=== PATIENT | female | born 1945 | race Caucasian/White ===

== ENCOUNTER → 2021-03-02 13:08 | Outpatient (CLI) | payer MEDICARE, SELFPAY ==
--- NOTE | 2021-03-02 13:18 | DI.MRI.S_ITS ---
PROCEDURE: MR LUMBAR SPINE WO CON INDICATIONS: LOW BACK PAIN TECHNIQUE: Noncontrast sagittal T1 spin echo and T2 fast echo, sagittal STIR, axial T1 and T2 fast spin echo through the lumbar spine. In cases with scoliosis, additional coronal T2 fast spin echo may be performed. COMPARISON: [facility], MR, MR LUMBAR SPINE WITHOUT CONTRAST, 06/16/2016, 16:25. [facility], MR, L-SPINE WITHOUT CONTRAST, 10/11/2010, 14:56. FINDINGS: Image quality: Excellent. Alignment and Curvature: Grade 1 retrolisthesis of L3 on L4. Grade 1 anterolisthesis of L4 on L5. Bone Marrow: No acute fracture identified. Multilevel degenerative endplate sclerosis and spurring. Diffuse facet arthropathy. Diffuse degenerative endplate changes at L3-L4 which have progressed since the prior study. Spinal Cord: Conus medullaris terminates at the L2 level. Visualized cord demonstrates normal signal and size. Paraspinous Soft Tissues: No paravertebral masses. At T11-T12: Mild canal narrowing. Mild left foraminal stenosis. Severe right foraminal stenosis with nerve root compression although in unchanged T12-L1: Normal appearance. L1-L2: No canal stenosis. Mild bilateral foraminal narrowing. No interval change. L2-L3: Mild canal narrowing. Partial effacement of both lateral recesses with bilaterally symmetric appearance. Mild right foraminal stenosis. Severe left foraminal narrowing with nerve root compression. Overall, no interval change. L3-L4: Dorsal epidural lipomatosis is present. There is moderate to severe canal stenosis. Near complete effacement of both lateral recesses with bilaterally symmetric appearance. Severe bilateral foraminal stenosis with nerve root compression, which appears slightly progressed on both sides. L4-L5: Mild dorsal epidural lipomatosis. Moderate to severe central canal narrowing. Near complete effacement of both lateral recesses with bilaterally symmetric appearance. Severe bilateral foraminal stenosis with borderline nerve root compression on both sides. L5-S1: Posterior annular fissure. Mild to moderate canal narrowing. Severe right foraminal stenosis with nerve root compression. Moderate left foraminal narrowing, unchanged. IMPRESSION: Slight interval progression L3-L4 spondylosis and bilateral severe L3-L4 foraminal stenoses since 06/16/16. Elsewhere, no interval change as detailed above by spinal level. Multilevel spondylolisthesis as above. Dictated by: Fidel Armando M.D. on 03/02/2021 at 14:08 Approved by: Fidel Armando M.D. on 03/02/2021 at 14:27
== END ==
PROVIDERS: PCP Internal Medicine; Referring Provider Orthopaedic Surgery; Visit Provider Orthopaedic Surgery
DX: M54.5 Low back pain (principal); M47.816 Spondylosis without myelopathy or radiculopathy, lumbar region; M48.061 Spinal stenosis, lumbar region without neurogenic claudication; M43.16 Spondylolisthesis, lumbar region
CPT/HCPCS: 72148

== ENCOUNTER → 2022-07-17 13:36 | Outpatient (CLI) | payer OTHER, SELFPAY ==
--- NOTE | 2022-07-17 | DI.CT.S_ITS ---
PROCEDURE: CT LUMBAR SPINE WO CON INDICATIONS: SPINAL STENOSIS OF LUMBAR REGION TECHNIQUE: Noncontrast 3 mm thick sections acquired from the T12 level to the sacrum. Sagittal and coronal reformats were constructed. For radiation dose reduction, the following was used: automated exposure control. COMPARISON: [facility], MR, MR LUMBAR SPINE WO CON, 03/02/2021, 13:28. [facility], CR, XR LUMBAR SPINE 2 OR 3 VIEWS, 03/21/2022, 14:50. FINDINGS: Image quality: This examination is limited by involuntary motion artifact. Bones: No acute vertebral body compression fractures. No suspicious lytic or blastic bony lesions. No pars defects. Mild dextroconvex scoliotic curvature is seen. Mild retrolisthesis is seen at T11-T12. Mild grade 1 anterolisthesis is seen at L4-L5, without associated pars defects. T11-T12: At least moderate loss of disc height is seen. At least moderate disc bulge is seen. There is at least moderate left-sided and moderate to severe right-sided neural foraminal narrowing. Mild to moderate central canal narrowing is seen. T12-L1: No significant abnormality is seen. L1-L2: The disc height is well preserved. Mild generalized disc bulge is seen. There is at least moderate right-sided and mild left-sided neural foraminal narrowing. Mild central canal narrowing is seen. These imaging findings are likely similar to the prior. L2-L3: At least moderate loss of disc height is seen. At least moderate disc bulge is seen. There is a central disc protrusion. There is moderate right-sided and at least moderate left-sided neural foraminal narrowing. [id number] central canal narrowing is seen. When comparison is made with the prior images, these findings are similar. L3-L4: Moderate to severe loss of disc height is seen. Endplate irregularity and sclerosis are seen. Posteriorly projected endplate osteophytes are seen. Mild facet joint hypertrophy is seen. Moderate to severe bilateral neural foraminal narrowing can be seen. At least moderate central canal narrowing is seen. When comparison is made with the prior images, these findings are similar. L4-L5: Moderate loss of disc height is seen. At least moderate disc bulge is seen. There is a superimposed central disc protrusion. Prominent facet hypertrophy is seen. Associated hypertrophy of the ligamentum flavum can be seen. Moderate to severe bilateral neural foraminal narrowing can be seen. There is severe central canal narrowing. When comparison is made with the prior images, these findings are similar. L5-S1: Moderate to severe loss of disc height is seen. Endplate irregularity and sclerosis can be seen. Vacuum disc phenomenon is seen at this level. Relatively prominent posterior projected endplate osteophytes are seen. Bony moderate to severe bilateral neural foraminal narrowing is seen. Severe central canal narrowing is seen. When comparison is made with the prior images, these findings are similar. Soft tissues: No retroperitoneal masses or hematomas. Visualized aorta is normal in caliber. Atherosclerotic calcification is noted. IMPRESSION: Multiple levels of relatively prominent lumbar spine degenerative change are seen. The degenerative changes are believed to be similar to the prior MRI. However, the degree of central canal narrowing at L5-S1 is much better seen on the current study. Dictated by: Jamal Nguyen M.D. on 07/17/2022 at 15:36 Approved by: Jamal Nguyen M.D. on 07/17/2022 at 15:51
== END ==
PROVIDERS: PCP Internal Medicine; Referring Provider Orthopaedic Surgery Orthopaedic Surgery of the Spine; Visit Provider Orthopaedic Surgery Orthopaedic Surgery of the Spine
DX: M48.061 Spinal stenosis, lumbar region without neurogenic claudication (principal); M48.07 Spinal stenosis, lumbosacral region; M47.816 Spondylosis without myelopathy or radiculopathy, lumbar region
CPT/HCPCS: 72131

== ENCOUNTER → 2022-07-21 12:22 | Outpatient (CLI) | payer OTHER, SELFPAY ==
[2022-07-21 12:57] LABS: COVID19 -Nasal RAPID Negative (Negative)
== END ==
PROVIDERS: PCP Internal Medicine; Referring Provider Orthopaedic Surgery Orthopaedic Surgery of the Spine; Visit Provider Orthopaedic Surgery Orthopaedic Surgery of the Spine
DX: Z20.822 Contact with and (suspected) exposure to COVID-19 (principal)
CPT/HCPCS: 87635; C9803

== ENCOUNTER 2022-07-24 08:40 | Inpatient (IN) | payer OTHER, SELFPAY ==
[2022-07-12 12:31] VITALS: BMI 28.3
[2022-07-24] VITALS (18 sets, daily range): BP systolic 118–154; BP diastolic 60–89; PULSE 71–100; RESP 12–21; TEMP 36.2–36.9; O2SAT 94–99; BMI 27.8
[2022-07-24] MEDS: LACTATED RINGERS 1,000 ML 84 ML IV ×3 (10:15→13:08)
--- NOTE | 2022-07-24 10:25 | PM.PREOP ---
Pre-operative Note COVID-19 COVID-19 status: Negative Result date/Date tested (Pos, Neg/Pending): 07/23/22 Criteria for continued procedure: Expected advancement of disease process, Possibility delay results in more complex future surgery or treatment, Increased loss of function, Continuing or worsening of significant or severe pain, Deterioration of the patient's condition or overall health and Delay expected to result in less-positive ultimate med/surg outcome Interval Note History & Physical reviewed/Exam performed by Physician: Yes Changes to H&P: No
[2022-07-24] MEDS: CEFAZOLIN 2 GM/100 ML PREMIX 100 ML IV ×2 (11:35→19:33)
[2022-07-24] MEDS: BUPIVACAINE 0.25% (PF) 30 ML, EPINEPHrine 0.15 MG INJ (12:11)
[2022-07-24] MEDS: BUPIVACAINE LIPOSOME 266 MG/20 ML VIAL INJ (12:12)
--- NOTE | 2022-07-24 12:15 | SUR.OPER ---
room delayed d\t concerns regarding humidity level in room. Moved forward with case when assured that boiler was working
--- NOTE | 2022-07-24 12:19 | SUR.OPER ---
Prone on spine table, head in foam head support, padded chest and pelvic supports, gel pad at knees, lower legs supported by pillows; nipples, genitalia and toes free of pressure, arms secured on foam padded arm boards at <90 degrees abduction. Tape over blanket at thigh secured to table.
--- NOTE | 2022-07-24 16:00 | DI.RAD.S_ITS ---
PROCEDURE: XR LUMBAR SPINE 2-3V INDICATIONS: Postop TECHNIQUE: 2 spot fluoroscopic intraoperative images of the lumbar spine were acquired. COMPARISON: [facility], XR LUMBAR SPINE 2 OR 3 VIEWS, 03/21/2022, 14:50. FINDINGS: Spot fluoroscopic intraoperative images demonstrate interval postsurgical changes from posterior fixation at L3 through S1. Hardware components are in expected positions. IMPRESSION: Status post lumbar spinal fixation with expected postoperative findings. Approved by: Reyes Rhodes M.D. on 07/24/2022 at 16:42
--- NOTE | 2022-07-24 16:20 | PM.OP.1 ---
Operative Date/Time/Diagnoses Date of procedure: 07/24/22 Time of procedure: 11:20 Pre-op diagnosis: 1. L3-4, L4-5, L5-S1 spinal stenosis with neurogenic claudication 2. L4-5 spondylolisthesis 3. Lumbar scoliosis Post-op diagnosis: same Procedure & Clinicians Procedure: 1. L3-4, L4-5, L5-S1 Postero-lateral and posterior interbody fusion 2. L3-4, L4-5, L5-S1 interbody cage placement. 3. L3-4, L4-5, L5-S1 decompressive laminectomy with bilateral facetecomies 4. L3-4, L4-5, L5-S1 Posterior segmental instrumentation 5. [place] of bone marrow from iliac crest 6. Utilization of microsurgical technique and operating microscope 7. Utilization of robotic assisted navigation Same procedure as scheduled: Yes Indications: Patient has been having chronic back pain and worsening lumbar radiculopathy and symptoms of neurogenic claudication. Patient failed multiple conservative management with worsening pain weakness and numbness in her lower extremity. Patient has been having difficulty performing activity of daily living. After discussing risks benefits of treatment options, patient elected proceed with surgery. Surgeon: Trent Hurst Enterprise Services Manager: Lyndsey Sims Click Yes if Unassisted: No Anesthesia Type: General Operative Notes Closure Type: primary Specimen(s): none sent Prosthetic devices, grafts, tissues, transplants, or devices: Globus CREO MIS screws, RIse cages Applied: catheter Estimated Blood Loss (mL): 100 Blood products transfused: none Procedure in detail: Patient was seen in the preoperative area. Risks and benefits of the surgery was discussed with the patient. Informed consent was obtained from the patient and placed in the chart. Surgical site was marked. Patient was taken to the operative room. General anesthesia was administered. Prophylactic antibiotic was given to the patient less than 30 min before the incision was made. Patient was placed into a prone position on the Luis table. Patient's back was then prepped and draped in the sterile fashion. Time-out was performed at this time. After patient was prepped and draped, patient's PSIS was palpated and marked bilaterally. Small 1 cm incision was made over the PSIS for placement of the reference probes. Two trocar was placed into the PSIS 1 on each side. The reference probe was attached to the trocar of the reference apparatus. At this time the C-arm imaging was used to confirm AP and lateral of L3-4, L4-L5, L5-S1 vertebrae and merged the C-arm imaging using the [employer] robotic navigation system with the CT of the lumbar spine. After successful merging was completed and confirmed, skin marker was used to dora out the skin incision using the [employer] robotic arm. Bilateral incision was made at this time. Pre templated trajectory was used and guided using the [employer] robotic navigation system for bilateral L3, L4, L5, S1 pedicle screw placement. This was done by using the robotic arm to guide the high-speed bur to make a cortical entry point. Next a drill was placed also using the robotic arm and guided using the navigation system drilling partially through bilateral L3, L4, L5 and S1 pedicles. Next L3, L4, L5, S1 pedicle screws it was pre templated and measured was placed onto the power company tanker truck driver and inserted into the pedicles bilaterally. After all 8 screws were placed C-arm imaging was taken of both AP and lateral to confirm the placement. Excellent placement of the screws were confirmed and a matched precisely with the pre planned screw placement using the navigation system. MARs retractor was inserted using [employer] guidence. Globus MARS retractors was placed inside the incision and docked onto the L3, L4 and L5 lamina. Using microsurgical technique and operating microscope, a L3, L4, L5 laminectomy and L3-4, L4-5, L5-S1 facetectomy was performed using a [place] rongeur. Patient was found have severe lateral recess and neural foramen stenosis which was fully decompressed after the laminectomy facetectomy. More than 75% of the facets were removed during the process of decompression rendering L3-4, L4-5, L5-S1 level grossly unstable and required a fusion procedure at the same time. The disc space at L3-4, L4-5, L5-S1 was identified, and a total diskectomy was performed at L3-4, L4-5, L5-S1 level. The endplates were decorticated using a rasp and shaver. The total diskectomy and decortication was performed at L3-4, L4-5, L5-S1 level in order to to accomplish a L3-4, L4-5, L5-S1 fusion. The local bone from the laminectomy and facetectomy was saved for local bone grafting. After the total diskectomy and decortication was completed, Trifecta bone graft material was combined with local bone that was harvested earlier. At this time, a separate skin is incision was made over the iliac crest. A Jamshidi needle was inserted into the iliac crest through a separate skin incision. 5 cc of bone marrow aspiration was obtained through the separate skin incision using a Jamshidi needle from the iliac crest. The bone marrow aspiration was combined with local bone and the Trifecta bone grafting material. The bone grafting material was placed into the L3-4, L4-5, L5-S1 interbody space along with a expandable cage. The cage was expanded to its maximum height using the torque limiting screwdriver. The disc preparation as well as the cage insertion were also performed under navigation guidance. After the cage was placed, AP and lateral C-arm imaging was taken to confirm placement of the cage and excellent position was confirmed. Globus MARS retractor was inserted and docked onto the L3-4, L4-5, L5-S1 posterolateral gutter on the right side. Using the power drill, posterior-lateral decortication was performed at L3-4, L4-5, L5-S1 level until bleeding cortical bone was identified. The remaining bone grafting material was placed into the L3-4, L4-5, L5-S1 posterior lateral gutter he order to accomplish posterolateral fusion at the L3-4, L4-5, L5-S1 level. At this time the t[place]ips were attached to the L3, L4, L5, S1 pedicle screw shanks. After measuring the length of the rods, they were inserted into the tulips of the pedicle screws and locked in place using locking caps and torque limiting screwdriver bilaterally. Total 8 caps and 2 titanium rods was used in order to complete the posterior instrumentation construct. After all the hardware was placed, and confirmed with AP and lateral C-arm imaging, the wound was then irrigated with sterile normal saline and packed with Ray-Steven gauze for 3 min to accomplish hemostasis. After the gauze was removed the deep fascia was closed with #1 Vicryl suture. The subcutaneous layer was closed with 2-0 Vicryl. The skin was closed with skin micheline. Patient tolerated the procedure well. There were no complications. Neuro monitoring system was used to monitor patient's neurologic status throughout entire procedure. There was no disturbance of the neural monitoring signals throughout the case. Complications: none Post-operative Condition: stable Disposition: PACU Plan for aftercare: Admit to inpatient hospital
[2022-07-24] MEDS: HYDROMORPHONE 2 MG INJ IV ×4 (16:43→17:00)
[2022-07-24] MEDS: LORazepam 2 MG/ML INJ 0.5 MG IV (16:54)
[2022-07-24] MEDS: OXYCODONE IR 5 MG TABLET PO (17:16)
[2022-07-24] MEDS: hydrOXYzine pamoate 25 MG CAPSULE PO ×2 (17:29→22:51)
[2022-07-24] MEDS: OXYCODONE IR 5 MG TABLET 10 MG PO ×2 (18:16→22:50)
[2022-07-24] MEDS: SODIUM CHLORIDE 0.9% 1,000 ML 100 ML IV (18:20)
[2022-07-24] MEDS: HYDROMORPHONE 0.5 MG INJ IV ×2 (18:23→21:05)
--- NOTE | 2022-07-24 18:26 | PC.NURSE ---
Pt arrived from PACU this evening Alert and OX4, on RA. She reports severe pain, but behavior indicates relief after settling in her room and receiving prn IV dilaudid and po 10 mg oxycodone. She denies n/v. VSS, on RA. NS IVF running at 100ml/hr, SCDS on, and she is instructed on IS use. Foster in place draining clear light yellow urine. She denies numbness and tingling to BLE's. Call light in reach and oriented to room/unit routines.
[2022-07-24] MEDS: SENNOSIDES 8.6 MG TABLET 17.2 MG PO (21:04)
[2022-07-24] MEDS: MONTELUKAST 10 MG TABLET PO (21:04)
[2022-07-24] MEDS: DOCUSATE 100 MG CAPSULE PO (21:04)
[2022-07-24] MEDS: GABAPENTIN 100 MG CAPSULE 300 MG PO (21:04)
[2022-07-25 00:20] VITALS: BP 133/72; PULSE 90; RESP 18; TEMP 37.2; O2SAT 96
[2022-07-25] MEDS: OXYCODONE IR 5 MG TABLET 10 MG PO ×7 (01:38→21:39)
[2022-07-25] MEDS: CEFAZOLIN 2 GM/100 ML PREMIX 100 ML IV (03:11)
[2022-07-25] MEDS: SODIUM CHLORIDE 0.9% 1,000 ML 100 ML IV (04:20)
[2022-07-25 04:29] VITALS: BP 134/64; PULSE 76; RESP 17; TEMP 36.7; O2SAT 96
[2022-07-25 05:38] LABS: Hematocrit 32.6 % (36-46); Hemoglobin 10.7 g/dL (12.0-16.0)
[2022-07-25 08:15] VITALS: BP 108/48; PULSE 77; RESP 18; TEMP 37.4; O2SAT 98
--- NOTE | 2022-07-25 08:36 | PM.PNPO.1 ---
Subjective Subjective Date Patient Seen: 07/25/22 Time Patient Seen: 08:36 Interval history: Patient's pain has been moderate to severe. Denies fever or chills. No nausea or vomiting. Exam Vital Signs (past 8 hours): - 07/25/22 04:29 Temperature 98.1 F Pulse Rate 76 Respiratory Rate 17 Blood Pressure 134/64 Pulse Oximetry 96 Oxygen Flow Rate 0 Oxygen Delivery Method Room Air Oxygen Flow Rate 0 Narrative Exam Narrative: 77-year-old female resting comfortably in bed in no apparent distress. Motor functions intact bilateral lower extremities. Sensation grossly intact to light touch bilateral lower extremities Const General: cooperative and comfortable Nutritional Appearance: overweight Orientation: alert Resp Effort & Inspection: normal respiratory effort and able to speak in complete sentences Objective Labs Result Diagrams: 07/25/22 05:25 Labs: Laboratory Results - last 24 hr 07/25/22 05:25 Hgb 10.7 L Hct 32.6 L PFSH Medical History Anxiety Asthma Fibromyalgia HLD (hyperlipidemia) Pre-diabetes Sciatica Seizure Spinal stenosis Surgical History History of bilateral tubal ligation Hx of dilation and curettage Hx of hernia repair Social History household members: none Smoking Status: Current every day smoker alcohol intake: current Assessment & Plan Post-op Postoperative Procedures: Procedures Operation Date: 07/24/22 10:45 Actual Procedure Side Surgeon p L3-4, L4-5, L5-S1 TLIF w. posterior instrumentation -Robot Trent Hurst MD Postoperative day: 1 Postoperative status: doing well and marginal pain control Postoperative plan: routine post-op care Postoperative plan narrative: Multimodal pain management Mobilize with physical therapy, limit bending, twisting, lifting Disposition, home today or tomorrow Quality VTE Deep Vein Thrombosis/Pulmonary Embolism Present on Admission: No
[2022-07-25] MEDS: GABAPENTIN 100 MG CAPSULE 300 MG PO ×2 (08:39→21:36)
[2022-07-25] MEDS: ATORVASTATIN 20 MG TABLET 40 MG PO (08:39)
[2022-07-25] MEDS: CYANOCOBALAMIN (VITAMIN B-12) 500 MCG TABLET 1000 MCG PO (08:39)
[2022-07-25] MEDS: PRENATAL VIT,CALC/IRON/FOLIC 1 TABLET 1 TAB PO (08:39)
[2022-07-25] MEDS: DOCUSATE 100 MG CAPSULE PO ×2 (08:39→21:41)
[2022-07-25] MEDS: hydrOXYzine pamoate 25 MG CAPSULE PO ×3 (08:39→21:37)
[2022-07-25] MEDS: CHOLECALCIFEROL (VITAMIN D3) 5,000 UNIT TABLET 5000 UNIT PO (08:40)
[2022-07-25] MEDS: polyethylene glycoL 3350 17 GM POWD.PACK PO ×2 (08:46→21:36)
--- NOTE | 2022-07-25 09:05 | PT.IIE ---
Current Diagnoses Spondylolisthesis, lumbar region (07/24/22) Spinal stenosis, lumbar region with neurogenic claudication (07/24/22) Surgery Performed Operation Date: 07/24/22 10:45 Actual Procedures p L3-4, L4-5, L5-S1 TLIF w. posterior instrumentation -Robot - Trent Hurst MD Surgical History (Last Reviewed 07/25/22 @ 08:37 by Vipin Ruiz PA-C) History of bilateral tubal ligation Hx of dilation and curettage Hx of hernia repair Medical History (Last Reviewed 07/25/22 @ 08:37 by Vipin Ruiz PA-C) Anxiety Asthma Fibromyalgia HLD (hyperlipidemia) Pre-diabetes Sciatica Seizure Spinal stenosis Physical Therapy Inpatient Evaluation/Re-Eval M1 PT/OT-IP Prior Functional Status Start: 07/25/22 12:40 Freq: NEEDED Status: Active Protocol: Document 07/25/22 09:05 AB (Rec: 07/25/22 12:53 AB [id number]) Medical Review Prior Functional Status Medical History Reviewed Yes Communication able to make needs known Mobility and Gait pt stated that she is modified independent with all mobilities and ambulation without AD but occasionally uses a SPC depending on LBP Social History Household Members none Living Arrangements Mobile home Number of Floors (Floors) One Floor Number of Stairs To Enter/Railing? 3 steps 2 wide rails to enter the house Home Environment High Toilet,Walk in Shower Home Equipment Front Wheel Walker,Four Wheel Walker,Straight Cane,Shower Seat without Backrest,Hand Held Shower,Grab Bars In Shower Additional Social History Comment pt has a toilet safety frame M2 PT-IP Current Condition Start: 07/25/22 12:40 Freq: NEEDED Status: Active Protocol: Document 07/25/22 09:05 AB (Rec: 07/25/22 12:53 AB [id number]) Physical Therapy Current Condition Current Condition Evaluation Date 07/25/22 Treatment Diagnosis s/p L3-4, L4-5, L5S1 TLIF; difficulaty in walking Onset Date 07/24/22 M3 PT-IP Subjective Start: 07/25/22 12:40 Freq: NEEDED Status: Active Protocol: Document 07/25/22 09:05 AB (Rec: 07/25/22 12:53 AB [id number]) Subjective Physical Therapy Visit Type Type Initial Evaluation Visit Start Time 09:05 Visit Stop Time 10:00 Total Visit Minutes 55 Number of RECORDS AND TAPE RECORDINGS ENGINEER Visits 0 Physical Therapy Visit Comments Patient Comments agreeable to do PT Therapy Pain Assessment Pain When Pain Assessed At Rest Pain Present Pain Present Pain Reported Location Back Intensity 9 Scale Used Numeric (0 - 10) Pain Behaviors Facial Grimacing,Guarding, Holding Area,Wincing Pain Management Techniques Apply Cold,Distraction, Modification of Treatment,Re- positioning,Timing of Activity with Medications M4 PT-IP Mobility and Gait Start: 07/25/22 12:40 Freq: NEEDED Status: Active Protocol: Document 07/25/22 09:05 AB (Rec: 07/25/22 12:53 AB [id number]) PT-Bed Mobility Assessment Rolling Type of Rolling Log Rolling Level of Assist Maximal Assistance Supine to Sit Supine to Sit Maximum Assistance,Bedrails PT-Transfer Assessment Sit to and From Stand Sit to and from Stand Maximum Assistance,2 Person Assistance,Use of Upper Extremities Equipment Transfer Assistive Device Gait Belt,Front Wheeled Walker Orthotic/Prosthetic Devices or Brace: No Transfers Transfer Destination Chair Transfer Technique ambulated Transfer Ability Level of Assist Maximum Assistance,Use of Upper Extremities Comments Mobility Comments educated pt on back precautions and log roll bed mobility. BP in supine: 109/ 40. completed supine to sit log roll max A and max cues. able to sit on EOB CGA. completed sit to stand from EOB x 3 attempts max A x 2 and max cues. c/o increase LBP. completed ambulation ~ 12 ft using FWW to the chair max A x 1-2 and max cues. presents with shuffling gait and heavey UE use on FWW. positioned pt on the chair. call light and table placed within reach. NAC in room to assist. Gait Assessment Gait Gait Assistance Required: Maximum Assistance,1 Person Assist,2 Person Assist Distance (Feet) 12 Able to Maintain Weight Bearing Status Yes During Gait Assistive Devices Assistive Device Gait Belt,Front Wheeled Walker Orthotic/Prosthetic Devices or Brace: No Factors Limiting Gait Function Factors Limiting Gait Function Decreased Activity Tolerance, Decreased Strength,Difficulty Following Directions,Limited Range of Motion,Pain,Poor Balance,Poor Safety Awareness PT-Balance Assessment Sitting Balance and Reactions Static Sitting Balance Ability Fair Dynamic Sitting Balance Ability Fair Standing Balance and Reactions Static Standing Balance Ability Poor Dynamic Standing Balance Ability Poor Device Used FWW M5 PT-IP Objective Assessments Start: 07/25/22 12:40 Freq: NEEDED Status: Active Protocol: Document 07/25/22 09:05 AB (Rec: 07/25/22 12:53 AB [id number]) Orientation Orientation/Cognition Level of Alertness Alert Orientation Name,Place,Situation Language Function Ability No Deficits Noted Safety Awareness Decreased Safety Awareness Memory Description Short Term Impaired Gross Range of Motion Lower Extremity ROM Assessment Within Functional Limits Strength Lower Extremity Strength Assessment Bilaterally Impaired Hip 3+/5 Knee 3+/5 Sensation Assessment Sensation Gross Sensation WNL Muscle Tone Muscle Tone WNL Yes M6 PT-IP Treatment Start: 07/25/22 12:40 Freq: NEEDED Status: Active Protocol: Document 07/25/22 09:05 AB (Rec: 07/25/22 12:53 AB [email or web address]) Physical Therapy Treatment Education Education Provided Precautions,Weight Bearing Status,Post-Op Packet,Safety M7 PT-IP Assessment and Plan Start: 07/25/22 12:40 Freq: NEEDED Status: Active Protocol: Document 07/25/22 09:05 AB (Rec: 07/25/22 12:53 AB [email or web address]) PT Summary Assessment and Plan Potential Rehabilitation Potential Fair Status of Condition at Evaluation Evolving Summary Impairments Pain,ROM,Strength,Balance, Coordination,Sensation,Tone, Cognition,Bed Mobility, Transfers,Gait,Activity Tolerance Assessment Summary pt requiring max A x 2 for sit to stand /transfers using FWW and max A with ambulation using FWW but only tolerated ~ 12 ft of walking with c/o increase LBP. d/c plan depending on progress but at this time, pt will need SNF rehab. pt stated that her friend may be able to assist her and caregiver training set up for tomorrow at 9am. will continue to assess Goals Bed Mobility Goal Standby Assistance Transfer Goal Standby Assistance,Front Wheeled Walker Gait Goal Standby Assistance,Front Wheel Walker Gait Distance 150 Other Goals up/own 3 steps 1 rail SBA Days to Meet Goals 10 Frequency of Treatment Frequency Of Treatment Twice a Day Treatment Plan Physical Therapy Treatment Plan Bed Mobility Training,Transfer Training,Gait Training, Therapeutic Exercise,Balance Retraining,Post Op Education, Discharge Planning,Hot or Cold Pack,Neuromuscular Re-ed, Coordination Retraining,Manual Therapy Precautions Lumbar Precautions Log Roll,No Twisting,Limit Bending,Lifting Restriction of 10 lbs,Gait Belt above Incisional Area Recommendations To Nursing Amount of Assist Needed 2 Person Assist Discharge Recommendations PT Discharge Recommendations Home with 19/03 Assist Available,Home Health,SNF Rehab,Home vs SNF Transportation Needs at Discharge Private Vehicle,Wheelchair/ Cabulance
--- NOTE | 2022-07-25 10:47 | OT.IP.EVAL ---
Current Diagnoses Spondylolisthesis, lumbar region (07/24/22) Spinal stenosis, lumbar region with neurogenic claudication (07/24/22) Surgery Performed Operation Date: 07/24/22 10:45 Actual Procedures p L3-4, L4-5, L5-S1 TLIF w. posterior instrumentation -Robot - Trent Hurst MD Past Medical History (Last Reviewed 07/25/22 @ 08:37 by Vipin Ruiz PA-C) Anxiety Asthma Fibromyalgia HLD (hyperlipidemia) Pre-diabetes Sciatica Seizure Spinal stenosis Surgical History (Last Reviewed 07/25/22 @ 08:37 by Vipin Ruiz PA-C) History of bilateral tubal ligation Hx of dilation and curettage Hx of hernia repair Occupational Therapy Inpatient Evaluation/Re-Eval M1 PT/OT-IP Prior Functional Status Start: 07/25/22 12:40 Freq: NEEDED Status: Active Protocol: Document 07/25/22 10:20 [facility] (Rec: 07/25/22 13:14 [facility] [id number]) Medical Review Prior Functional Status Communication Independent Mobility and Gait Pt states uses a SPC as needed . Activities of Daily Living and IADL's Pt states able to do ADL needs with increased pain and not longer able to do her gardening. Prior Functional Level (Other details) Pt lives with her dog. Social History Household Members none Living Arrangements Mobile home Number of Floors (Floors) One Floor Number of Stairs To Enter/Railing? 4 steps with right rail to enter. Home Environment Standard Height Toilet,Walk in Shower Home Equipment Front Wheel Walker,Four Wheel Walker,Straight Cane,Tub Transfer Bench,Hand Held Shower,Grab Bars In Shower Additional Social History Comment Pt has a toilet safety frame around the toilet, Pt has a grabber versus livestock judging coach at home. Pt states has friends to assist her. M2 OT-IP Current Condition Start: 07/25/22 12:00 Freq: Status: Active Protocol: Document 07/25/22 10:20 [facility] (Rec: 07/25/22 13:14 [facility] [id number]) Occupational Therapy Current Condition Current Condition Evaluation Date 07/25/22 Treatment Diagnosis S/p L3-4, L4-5, L5-S1 TLIF Diagnosis Onset Date 07/24/22 Post Operative Precautions Lumbar Precautions Log Roll,No Twisting,Limit Bending,Lifting Restriction of 10 lbs,Gait Belt above Incisional Area M3 OT- IP Subjective and Pain Start: 07/25/22 12:00 Freq: Status: Active Protocol: Document 07/25/22 10:20 [facility] (Rec: 07/25/22 13:14 [facility] [id number]) OT- Subjective Occupational Therapy Visit Type Type Initial Evaluation Visit Start Time 10:20 Visit Stop Time 10:47 Total Visit Minutes 27 Occupational Therapy Visit Comments Patient Comments Pt wanting to get back to bed. Patient/Caregiver Goals Pt wanting to go to skilled rehab OT Pain Assessment Pain When Pain Assessed At Rest Pain Present Pain Present Pain Reported Location Back Intensity 5 Scale Used Numeric (0 - 10) M4 OT- IP ADL's Start: 07/25/22 12:00 Freq: Status: Active Protocol: Document 07/25/22 10:20 [facility] (Rec: 07/25/22 13:14 [facility] [id number]) OT [id number] Comments OT Self-Feeding Comments NOt at meal time. OT ADL-Grooming Comments OT Grooming Comments Not performed as pt wanting to go back to bed. OT ADL-Oral Care Comments Oral Care Comments Edcuated best to spit into a cup to best follow her back precations. OT ADL-Dressing General Eval Lower Body Dressing Ability Maximum Assistance Areas Needing Assistance Socks Comments OT Dressing Comments Initiated education of LB dressing equipment and will benefit from getting a livestock judging coach , socks aid, and long handled shoe horn. OT ADL-Toileting Comments OT Toileting Comments Pt states reaches from the front to wipe after a bowel movement and will benefit from a toilet paper aid at this time and assist. Suggested pt also wear pads to prevent from hurrying to the bathroom at night. OT ADL-Bathing Comments OT Bathing Comments Not performed. M5 OT- IP IADL's Start: 07/25/22 12:00 Freq: Status: Active Protocol: Document 07/25/22 10:20 [facility] (Rec: 07/25/22 13:14 [facility] [id number]) OT-Instrumental Activities of Daily Living Home Safety Awareness Awareness of Need for Assistance at Home Good Awareness Home Safety Comments At this time due to decreased mobility, pt will need 24/7 available assist for all her needs. M6 OT- IP Functional Cognition Start: 07/25/22 12:00 Freq: Status: Active Protocol: Document 07/25/22 10:20 [facility] (Rec: 07/25/22 13:14 [facility] [id number]) Cognitive Factors Limiting Selfcare Function Cognitive Ability Level of Alertness Alert Patient Orientation Name,Place,Situation Attention Span Ability Capable of Focused Attention, Capable of Sustained Attention Ability to Follow Commands Able to Follow One Step Commands Safety Awareness Decreased Ability to Apply Precautions Cognitive Comments Cognitive Assessment Comments Pt able to follow commands for ADl and mobility needs. Pt needing cues for safety for hand placement when coming to stand or sitting down. OT- Vision and Hearing OT- Hearing Assessment OT- Hearing Assessment WFL OT- Vision Assessment Visual Acuity Glasses For Reading Occular Pursuits WFL M7 OT- IP Mobility and Balance Start: 07/25/22 12:00 Freq: Status: Active Protocol: Document 07/25/22 10:20 [facility] (Rec: 07/25/22 13:14 [facility] [id number]) OT- Bed Mobility Assessment Sit to Supine Sit to Supine Assist Maximum Assistance,1 Person Assistance OT-Transfer Assessment Sit to and From Stand Sit to and from Stand Moderate Assistance,2 Person Assistance Transfers Transfer Ability Maximum Assistance,1 Person Assistance Technique Transfer Destination Bed,Chair Comments Mobility Comments MODA X 2 to stand from the recliner and MOD/MAX AX 1 to help guide the FWW and to assist with pt's balance. OT- Balance Assessment Sitting Balance and Reactions Static Sitting Balance Ability Good Dynamic Sitting Balance Ability Fair Standing Balance and Reactions Static Standing Balance Ability Poor Dynamic Standing Balance Ability Poor M8 OT- IP Objective Assessments Start: 07/25/22 12:00 Freq: Status: Active Protocol: Document 07/25/22 10:20 [facility] (Rec: 07/25/22 13:14 [facility] [id number]) OT-Muscle Tone Assessment Muscle Tone WNL Yes M9 OT- IP Assessment and Plan Start: 07/25/22 12:00 Freq: Status: Active Protocol: Document 07/25/22 10:20 [facility] (Rec: 07/25/22 13:14 [facility] [id number]) OT Summary Assessment and Plan Potential Rehabilitation Potential Good Analytic Complexity at Evaluation Low Summary OT Impairments Pain,Balance,Functional Mobility,Grooming,Dressing, Toileting,Bathing,Toilet Transfers,Shower Transfers, Activity Tolerance Progress Towards Goals Slow Progress due to Pain,Slow Progress due to Activity Tolerance Assessment Summary Pt low complexity and main barriers are steps and now needing extensive 1-2 person asisst for most ADl and mobility needs. Pt would benefit from skilled rehab at this time. Pt is cooperative and motivated to get better. Pending progress home versus skilled rehab. Per PT note, to have a friend come to training tomorrow morning. Goals Grooming Goal Independent Dressing Goal Independent Toileting Goal Independent Bathing Goal Minimal Assistance Toilet Transfer Goal Independent Shower Transfer Goal Minimal Assistance Patient/Caregiver Education Goal Demonstrate Post-Op Precautions,Caregiver Independent Assisting Patient Days to Meet Goals 10 Frequency of Treatment Frequency Of Treatment Once a Day Treatment Plan OT Treatment Plan ADL Training,Functional Mobility,Patient/Family Education,Discharge Planning Other Treatment Recommendations and Next shower if appropriate Treatment Focus Discharge Recommendations OT Discharge Recommendations SNF Rehab Other Discharge Recommendations Pending progress and caregiver training possiblly home with 19/03 assist and home health Transportation Needs at Discharge Wheelchair/Cabulance
[2022-07-25] MEDS: ACETAMINOPHEN 325 MG TABLET 650 MG PO ×2 (11:46→18:56)
[2022-07-25] MEDS: GABAPENTIN 100 MG CAPSULE 200 MG PO ×2 (11:46→16:44)
--- NOTE | 2022-07-25 12:09 | CM.DANOTE ---
Addendum entered by Komal Cantor R.N. 07/25/22 14:43: WINDING INSPECTOR indicated that patient was able to get up and use bathroom with one assist. Had heard from Krissy at [facility], she indicated that they are out of network with [employer], and there is a cost share for the patient, and would not know the amount until patient is admitted. Spoke to Pamela at [facility], they are also out of network with insurance, but has been able to get auth. She will go ahead and submit, and does have beds available for tomorrow, if patient needs skilled. Plan B is home with home health, there is caregiver training at 0900. Original Note: DCP: Case received, EMR reviewed and met with patient. Introduced self and role. Was able to obtain information regarding patient's baseline activity status at home prior to surgery, as well as her current living situation. DCP assessment completed with information currently available. Patient is a 77 year old female who admitted yesterday morning to the care of the orthopedic team. PCP: Dr. Tirado. Payer: confirmed: [facility]. Patient came to the hospital via private vehicle for a surgical procedure. Patient had L3-4, L4-5, L5-S1 postero-lateral and posterior interbody fusion. Patient has history of spinal stenosis with neurogenic claudication. Met with patient in her room. She was laying on her left side, has been having pain issues. She is alert and oriented, and confirmed that she resides alone in [place]. She is , has friends listed. Patient thinks that she may need to go to a alf. Asked her if she had planned on this originally, patient had been thinking about it prior to surgery. At her baseline, she does have a FWW, does drive as well. Did bring in the Medicare Choice List. Let her know that the facility of choice will need to get an authorization from her [employer] insurance company, and will depend upon how she does with P.T. Had Ipad with facilities listed presented to patient, as well as Medicare Choice List. Patient is hopeful to go somewhere here in town, since it's easier to follow up with Dr. Hurst. Her other choice is [facility], since she lives in [place]. Left January a message to review, as she has worked with [employer] before. Left a message with Krissy at [facility], to see if they are contracted with [employer]. The barrier of this, is that [facility] will not admit patients until they have auths in writing. P: DCP to continue to follow. Will follow up with Pamela today to see if she can consider, and have a message out to [facility]. Komal Cantor RN/Primer Press Operator Discharge Planning/Care Management CM Discharge Assessment Start: 07/25/22 12:06 Freq: Status: Active Protocol: Document 07/25/22 12:06 (Rec: 07/25/22 12:09 [id number]) Discharge Planning Assessment Assigned Drain Tile Machine Operator Komal Cantor RN/Primer Press Operator Advance Directives? No History Provided By Patient,Medical Record Prior Living Arrangements Mobile home Household Members none Type of transporation used prior to Drives own vehicle admit Independent with ADL's Yes Is patient alert and oriented? Yes DME Already Rented / Owned FWW / Walker Patient/Family Preference Alf Facility Comment Patient requesting [facility] or [facility]. Barriers to Discharge Yes Comment Lives alone, has no one to assist at home, will need fpc. Discharge Plan Alf Facility Transportation Arrangement Facility Referrals Initiated Alf Additional Comment [facility], call out to [facility] If patient plan is SNF: Has PASSR been No: Will complete today completed? Medicare Choice List Provided Yes SNF/HH Preference [facility] or [facility] Has Agency SNF been contacted Yes Whiteboard Updated in Patient Room with Yes name and ext. # of Drain Tile Machine Operator Review Status In Process Next Review Type Continued Stay Review Pre-Anesthesia Assessment Start: 07/12/22 12:31 Freq: Status: Active Protocol: Document 07/12/22 12:31 [facility] (Rec: 07/12/22 13:41 [facility] [id number]) Pre-Anesthesia Assessment Patient Information Reviewed Via Phone Assessment Assessment Completed With Patient Comment Labs/ECG done per pt, not found, COVID screen @ 07/21 Primary Care Provider Sejal Tirado Seen Specialist in Last 12 Months Yes Specialist Seen Orthopedist Primary Language Icelandic Community Relations Advisor Required No Height 5 ft 2 in Weight 155 lb Body Mass Index (BMI) 28.3 Hearing Ability Hearing Impaired Visual Assist Glasses Dentition Type Teeth, Natural Present,Teeth, Missing Barriers to Learning None Hx Anesthesia Reactions No Hx Family Anesthesia Reaction No Hx Malignant Hyperthermia No Hx Blood Transfusions No Anesthesia Review Requested No alcohol intake current alcohol intake frequency a few times a month Smoking Status Current every day smoker Smoking cigarettes per day 5 Substance Use Type marijuana Comment Pt advised not to smoke marijuana 24 hours prior Musculoskeletal Symptoms Abnormal Gait,Back Pain, Difficulty Walking,Numbness, Radiating Pain into Limb, Tingling History of Falling (Recent or History of No ) Patient is completely paralyzed or No completely immobile Prosthesis or Orthotic Device Cane Mental Status Oriented to own ability Is patient on oxygen? No Does patient have STEVENSON/SOB No Hx Sleep Apnea No Currently Taking a [place] No Hx Chest Pain No Hx SOB No Hx Syncope or Dizziness No Anti-Coagulant Therapy No Has a Environmental Field Office Manager No Cardiac Testing No Hx Pacemaker/ICD No Pacemaker Rep Required? No Cardiac Clearance Received Not Applicable Diet Type At Home Regular,Vegetarian Dysphagia No Gastrointestinal Symptoms Constipation Urinary Catheter Present No Hx Urinary Self Catheterization No Diabetes No Patient No Lactating No Hx Drug Resistant Organism No Presence of External or Internal Medical No Devices Have you had any close contact with No someone diagnosed with COVID-19? Received a COVID vaccine? Yes Received all doses? No Marital Status /-2013 Lives With none Current Living Arrangements Mobile home Support System Friend(s) Does the Patient Have Assistance After Yes: Friend will stay with pt Surgery to assist with care at [place] Patient Discharge Plan Description Return Home Comment Pt advsied 2-3 day length of stay per surgeon Feels Safe in Current Environment Yes Been Physically Hurt or Threatened By a No Person in Current Environment Do you have thoughts of harming yourself None or others? Are you currently considering suicide? No Do you have a plan to hurt yourself or No Plan others? Do You Have Any Spiritual Beliefs That No May Affect Your HC Choices? Do You Have Any Cultural Practices That No May Affect Your HC Choices? Comment Cory Who Can We Speak to About Patient's Care Family, friends Identifying Code for Release of Patient Declines to issue Information Health Care Proxy/Next of Kin Kaitlyn Oneal (Best friend) Health Care Proxy Emergency Contact Name Ministerio (friend) Emergency Contact Advance Directives? No Power of Senior Training And Development Rep No PAC Instructions Durable medical equipment, Medications to take/avoid, Nasal antibiotic,No ETOH/ petroleum product on skin DOS, NPO,Pre-surgical wash,Sensory aids,Sturdy shoes/comfortable clothes,Do not bring valuables and remove jewelry
[2022-07-25] MEDS: MAG HYDROX/ALUM/SIMETH 30 ML UDC PO (15:39)
[2022-07-25 16:10] VITALS: BP 110/57; PULSE 91; RESP 16; TEMP 37.2; O2SAT 96
--- NOTE | 2022-07-25 16:25 | PT.IPTN ---
Current Diagnoses Spondylolisthesis, lumbar region (07/24/22) Spinal stenosis, lumbar region with neurogenic claudication (07/24/22) Surgery Performed Operation Date: 07/24/22 10:45 Actual Procedures p L3-4, L4-5, L5-S1 TLIF w. posterior instrumentation -Robot - Trent Hurst MD Physical Therapy Treatment Note M2 PT-IP Current Condition Start: 07/25/22 12:40 Freq: NEEDED Status: Active Protocol: Document 07/25/22 09:05 AB (Rec: 07/25/22 12:53 AB [email or web address]) Physical Therapy Current Condition Current Condition Evaluation Date 07/25/22 Treatment Diagnosis s/p L3-4, L4-5, L5S1 TLIF; difficulaty in walking Onset Date 07/24/22 M3 PT-IP Subjective Start: 07/25/22 12:40 Freq: NEEDED Status: Active Protocol: Document 07/25/22 16:25 AB (Rec: 07/25/22 16:54 AB [email or web address]) Subjective Physical Therapy Visit Type Type Treatment Note Visit Start Time 16:25 Visit Stop Time 16:40 Total Visit Minutes 15 Number of FISHING CAPTAIN Visits 0 Physical Therapy Visit Comments Patient Comments agreeable to do PT; requested to use the toilet Therapy Pain Assessment Pain When Pain Assessed At Rest Pain Present Pain Present Pain Reported Location Back Intensity 7 Scale Used Numeric (0 - 10) Pain Management Techniques Distraction,Modification of Treatment,Re-positioning, Timing of Activity with Medications M4 PT-IP Mobility and Gait Start: 07/25/22 12:40 Freq: NEEDED Status: Active Protocol: Document 07/25/22 16:25 AB (Rec: 07/25/22 16:54 AB [email or web address]) PT-Bed Mobility Assessment Rolling Type of Rolling Log Rolling Level of Assist Maximal Assistance Supine to Sit Supine to Sit Maximum Assistance,Bedrails PT-Transfer Assessment Sit to and From Stand Sit to and from Stand Maximum Assistance,1 Person Assistance,Use of Upper Extremities Equipment Transfer Assistive Device Gait Belt,Front Wheeled Walker Orthotic/Prosthetic Devices or Brace: No Transfers Transfer Destination Toilet Transfer Technique ambulated Transfer Ability Level of Assist Moderate Assistance,1 Person Assistance,Use of Upper Extremities Comments Mobility Comments completed supine to sit log roll max A and max cues x 3 attempts. completed sit to stand x 3 attempts max A and max cues. pt requested to use the toilet and ambulated to the toilet using FWW mod A and cues. shuffling gait with cues for quads activation. max A for controlled descent to the toilet. pt needing to use the toilet for awhile. call light positioned next to pt. informed nurse. Nurse in room. asked pt regarding caregiver training and stated that her friend cannot come and assist her and there will not be a consistent person to assist her at home. pt now agreeable to go to SNF Gait Assessment Gait Gait Assistance Required: Moderate Assistance Distance (Feet) 10 Able to Maintain Weight Bearing Status Yes During Gait Assistive Devices Assistive Device Gait Belt,Front Wheeled Walker Orthotic/Prosthetic Devices or Brace: No Gait Deviations General Gait Pattern Antalgic,Step-to Gait Factors Limiting Gait Function Factors Limiting Gait Function Decreased Activity Tolerance, Decreased Strength,Limited Range of Motion,Pain,Poor Balance,Poor Safety Awareness M5 PT-IP Objective Assessments Start: 07/25/22 12:40 Freq: NEEDED Status: Active Protocol: Document 07/25/22 09:05 AB (Rec: 07/25/22 12:53 AB [email or web address]) Orientation Orientation/Cognition Level of Alertness Alert Orientation Name,Place,Situation Language Function Ability No Deficits Noted Safety Awareness Decreased Safety Awareness Memory Description Short Term Impaired Gross Range of Motion Lower Extremity ROM Assessment Within Functional Limits Strength Lower Extremity Strength Assessment Bilaterally Impaired Hip 3+/5 Knee 3+/5 Sensation Assessment Sensation Gross Sensation WNL Muscle Tone Muscle Tone WNL Yes M6 PT-IP Treatment Start: 07/25/22 12:40 Freq: NEEDED Status: Active Protocol: Document 07/25/22 16:25 AB (Rec: 07/25/22 16:54 AB [email or web address]) Physical Therapy Treatment Education Education Provided Precautions,Safety M7 PT-IP Assessment and Plan Start: 07/25/22 12:40 Freq: NEEDED Status: Active Protocol: Document 07/25/22 16:25 AB (Rec: 07/25/22 16:54 AB [email or web address]) PT Summary Assessment and Plan Potential Rehabilitation Potential Fair Summary Impairments Pain,ROM,Strength,Balance, Coordination,Sensation,Tone, Cognition,Bed Mobility, Transfers,Gait,Activity Tolerance Progress Towards Goals Slow Progress due to Pain,Slow Progress due to Activity Tolerance Assessment Summary pt requiring max A for mobility using FWW and will require SNF rehab to improve strength and mobility. Goals Bed Mobility Goal Standby Assistance Transfer Goal Standby Assistance,Front Wheeled Walker Gait Goal Standby Assistance,Front Wheel Walker Gait Distance 150 Other Goals up/own 3 steps 1 rail SBA Days to Meet Goals 10 Frequency of Treatment Frequency Of Treatment Twice a Day Treatment Plan Physical Therapy Treatment Plan Bed Mobility Training,Transfer Training,Gait Training, Therapeutic Exercise,Balance Retraining,Post Op Education, Discharge Planning,Hot or Cold Pack,Neuromuscular Re-ed, Coordination Retraining,Manual Therapy Precautions Lumbar Precautions Log Roll,No Twisting,Limit Bending,Lifting Restriction of 10 lbs,Gait Belt above Incisional Area Recommendations To Nursing Amount of Assist Needed 2 Person Assist Discharge Recommendations PT Discharge Recommendations SNF Rehab Transportation Needs at Discharge Private Vehicle,Wheelchair/ Cabulance
[2022-07-25 21:18] VITALS: BP 104/54; PULSE 61; RESP 17; TEMP 36.2; O2SAT 100
[2022-07-25] MEDS: SENNOSIDES 8.6 MG TABLET 17.2 MG PO (21:40)
[2022-07-25] MEDS: MONTELUKAST 10 MG TABLET PO (21:41)
[2022-07-26 01:00] VITALS: BP 110/61; PULSE 89; RESP 17; TEMP 36.9; O2SAT 92
[2022-07-26] MEDS: hydrOXYzine pamoate 25 MG CAPSULE PO ×3 (02:13→13:54)
[2022-07-26] MEDS: OXYCODONE IR 5 MG TABLET 10 MG PO ×2 (02:13→05:20)
[2022-07-26 04:51] VITALS: BP 117/63; PULSE 85; RESP 17; TEMP 35.8; O2SAT 98
--- NOTE | 2022-07-26 06:46 | PC.NURSE ---
Pt in constant '8/10' pain in lower back and groin area. Pt has stated multiple times she believes she is getting a 'uti because of groin pain and frequency'. Patient denies dysuria, urine has no odor and frequency is about 2 hours, no noticable urgency.
--- NOTE | 2022-07-26 07:48 | PM.PNPO.1 ---
Subjective Subjective Date Patient Seen: 07/26/22 Time Patient Seen: 07:48 Interval history: The patient is complaining of severe low back pain this morning. She is barely able to get on to the bed baca this morning. No new numbness or tingling in her legs. No nausea or vomiting. She does not have a lot of help at home. Exam Vital Signs (past 8 hours): - 07/26/22 01:00 07/26/22 04:51 Temperature 98.5 F 96.5 F L Pulse Rate 89 85 Respiratory Rate 17 17 Blood Pressure 110/61 117/63 Pulse Oximetry 92 98 Oxygen Flow Rate 0 0 Oxygen Delivery Method Room Air Oxygen Flow Rate 0 Narrative Exam Narrative: 77yo female, in bed, moderate discomfort due to pain and the bed baca. Bilateral lower extremities: motor function is grossly intact, sensation is grossly intact to light touch, calves are soft and nonTTP. Objective Labs Result Diagrams: 07/25/22 05:25 PFSH Medical History Anxiety Asthma Fibromyalgia HLD (hyperlipidemia) Pre-diabetes Sciatica Seizure Spinal stenosis Surgical History History of bilateral tubal ligation Hx of dilation and curettage Hx of hernia repair Social History household members: none Smoking Status: Current every day smoker alcohol intake: current Assessment & Plan Post-op Postoperative Procedures: Procedures Operation Date: 07/24/22 10:45 Actual Procedure Side Surgeon p L3-4, L4-5, L5-S1 TLIF w. posterior instrumentation -Robot Trent Hurst MD Postoperative day: 2 Postoperative status: marginal pain control Postoperative status narrative: -slow progress s/p L3-4, L4-5, L5-S1 TLIF Postoperative plan narrative: -mobilize w PT/OT. WBAT w front wheeled walker. No bending/lifting/twisting x6 weeks -continue multimodal pain management. Changed tylenol to scheduled. Added po Dilaudid prn. Patient declined tramadol for breakthrough pain. -disposition: SNF today vs tomorrow, depending on insurance and PT progression. I will check in on her later today. Quality VTE Deep Vein Thrombosis/Pulmonary Embolism Present on Admission: No
[2022-07-26 08:04] VITALS: BP 146/88; PULSE 91; RESP 16; TEMP 37.6; O2SAT 96
[2022-07-26] MEDS: ACETAMINOPHEN 325 MG TABLET 650 MG PO ×2 (08:04→11:05)
[2022-07-26] MEDS: HYDROMORPHONE 2 MG TABLET PO ×3 (08:04→13:54)
[2022-07-26] MEDS: polyethylene glycoL 3350 17 GM POWD.PACK PO (08:41)
[2022-07-26] MEDS: DOCUSATE 100 MG CAPSULE PO (08:45)
[2022-07-26] MEDS: PRENATAL VIT,CALC/IRON/FOLIC 1 TABLET 1 TAB PO (08:46)
[2022-07-26] MEDS: CYANOCOBALAMIN (VITAMIN B-12) 500 MCG TABLET 1000 MCG PO (08:46)
[2022-07-26] MEDS: ATORVASTATIN 20 MG TABLET 40 MG PO (08:46)
[2022-07-26] MEDS: GABAPENTIN 100 MG CAPSULE 300 MG PO (08:46)
[2022-07-26] MEDS: CHOLECALCIFEROL (VITAMIN D3) 5,000 UNIT TABLET 5000 UNIT PO (08:46)
--- NOTE | 2022-07-26 08:48 | CM.DPC ---
DCP Cont: Pamela at [facility] has received auth. Lyndsey Sims, PAC, had already seen her, and mentioned in the notes, pending skilled for insurance auth. Left Lyndsey a message on her cell phone and let her know that [facility] can accept patient. Have confirmed fern picker time of 1400. Updated patient, is still having extreme pain. Will put in COVID swab order, and updated Yossarian. Updated white board as well. PASSR completed, pending orders. P: DCP to continue to follow. Plan is for [facility], pending PA to come over and complete discharge. user support analyst is scheduled for 1400. Komal Cantor, MYLA/Registered Mail Clerk
[2022-07-26 09:22] LABS: COVID19 -Nasal RAPID Negative (Negative)
--- NOTE | 2022-07-26 09:22 | PT.IPTN ---
Current Diagnoses Spondylolisthesis, lumbar region (07/24/22) Spinal stenosis, lumbar region with neurogenic claudication (07/24/22) Surgery Performed Operation Date: 07/24/22 10:45 Actual Procedures p L3-4, L4-5, L5-S1 TLIF w. posterior instrumentation -Robot - Trent Hurst MD Physical Therapy Treatment Note M2 PT-IP Current Condition Start: 07/25/22 12:40 Freq: NEEDED Status: Active Protocol: Document 07/25/22 09:05 AB (Rec: 07/25/22 12:53 AB [id number]) Physical Therapy Current Condition Current Condition Evaluation Date 07/25/22 Treatment Diagnosis s/p L3-4, L4-5, L5S1 TLIF; difficulaty in walking Onset Date 07/24/22 M3 PT-IP Subjective Start: 07/25/22 12:40 Freq: NEEDED Status: Active Protocol: Document 07/26/22 09:14 TRACE (Rec: 07/26/22 09:22 LJ [id number]) Subjective Physical Therapy Visit Type Type Treatment Note Visit Start Time 08:44 Visit Stop Time 09:13 Total Visit Minutes 29 Number of ROLLER SKATER Visits 1 Physical Therapy Visit Comments Patient Comments agreeable to do PT; requested to use the toilet Therapy Pain Assessment Pain When Pain Assessed At Rest Pain Present Pain Present Pain Reported Location Back Intensity 7 Scale Used Numeric (0 - 10) Pain Management Techniques Distraction,Modification of Treatment,Re-positioning, Timing of Activity with Medications M4 PT-IP Mobility and Gait Start: 07/25/22 12:40 Freq: NEEDED Status: Active Protocol: Document 07/26/22 09:14 TRACE (Rec: 07/26/22 09:22 LJ [id number]) PT-Bed Mobility Assessment Rolling Type of Rolling Roll to Left Level of Assist Moderate Assistance Supine to Sit Supine to Sit Moderate Assistance,Bedrails PT-Transfer Assessment Sit to and From Stand Sit to and from Stand Contact Guard Assistance,1 Person Assistance,Use of Upper Extremities Equipment Transfer Assistive Device Gait Belt,Front Wheeled Walker Orthotic/Prosthetic Devices or Brace: No Transfers Transfer Destination Toilet Transfer Technique ambulated Transfer Ability Level of Assist Contact Guard Assistance,1 Person Assistance,Use of Upper Extremities Comments Mobility Comments Completed bed mobility adhering to precautions with Min-ModA for LLE and SL to sit . CGA for [id number] from bed to BSC. Pt sat on BS for several minutes to void. Sit- stad from [facility] CGA. Pt then ambulated to chair which was 2feet in front of the [facility] CGA. Stand-sit into chair CGA. Pt able to scoot back in chair. Pt given all needs and left in chair. Housekeeping entered room. Gait Assessment Gait Gait Assistance Required: Contact Guard Assist Distance (Feet) 2 Assistive Devices Assistive Device Gait Belt,Front Wheeled Walker Gait Deviations General Gait Pattern Antalgic,Step-to Gait Factors Limiting Gait Function Factors Limiting Gait Function Decreased Activity Tolerance, Decreased Strength,Limited Range of Motion,Pain,Poor Balance,Poor Safety Awareness M5 PT-IP Objective Assessments Start: 07/25/22 12:40 Freq: NEEDED Status: Active Protocol: Document 07/25/22 09:05 AB (Rec: 07/25/22 12:53 AB [id number]) Orientation Orientation/Cognition Level of Alertness Alert Orientation Name,Place,Situation Language Function Ability No Deficits Noted Safety Awareness Decreased Safety Awareness Memory Description Short Term Impaired Gross Range of Motion Lower Extremity ROM Assessment Within Functional Limits Strength Lower Extremity Strength Assessment Bilaterally Impaired Hip 3+/5 Knee 3+/5 Sensation Assessment Sensation Gross Sensation WNL Muscle Tone Muscle Tone WNL Yes M6 PT-IP Treatment Start: 07/25/22 12:40 Freq: NEEDED Status: Active Protocol: Document 07/26/22 09:14 TRACE (Rec: 07/26/22 09:22 [id number]) Physical Therapy Treatment Education Education Provided Precautions,Safety M7 PT-IP Assessment and Plan Start: 07/25/22 12:40 Freq: NEEDED Status: Active Protocol: Document 07/26/22 09:14 TRACE (Rec: 07/26/22 09:22 [id number]) PT Summary Assessment and Plan Potential Rehabilitation Potential Fair Summary Impairments Pain,ROM,Strength,Balance, Coordination,Sensation,Tone, Cognition,Bed Mobility, Transfers,Gait,Activity Tolerance Progress Towards Goals Slow Progress due to Pain,Slow Progress due to Activity Tolerance Assessment Summary Pt requiring less assist. She moves very slowly. Advised to brace core muscles prior to movement and pt reported it helped. She will require SNF to improve mobility, strength, and overall function. Goals Bed Mobility Goal Standby Assistance Transfer Goal Standby Assistance,Front Wheeled Walker Gait Goal Standby Assistance,Front Wheel Walker Gait Distance 150 Other Goals up/own 3 steps 1 rail SBA Days to Meet Goals 10 Frequency of Treatment Frequency Of Treatment Twice a Day Treatment Plan Physical Therapy Treatment Plan Bed Mobility Training,Transfer Training,Gait Training, Therapeutic Exercise,Balance Retraining,Post Op Education, Discharge Planning,Hot or Cold Pack,Neuromuscular Re-ed, Coordination Retraining,Manual Therapy Precautions Lumbar Precautions Log Roll,No Twisting,Limit Bending,Lifting Restriction of 10 lbs,Gait Belt above Incisional Area Recommendations To Nursing Amount of Assist Needed 1 Person Assist Discharge Recommendations PT Discharge Recommendations SNF Rehab Transportation Needs at Discharge Private Vehicle,Wheelchair/ Cabulance
--- NOTE | 2022-07-26 09:51 | PM.DS.1 ---
History of Present Illness History of Present Illness Date Patient Seen: 07/26/22 Time Patient Seen: 07:40 Chief complaint: TLIF ROBOT Narrative: Please see prior note from today for HPI. Discharge Providers Provider Date of admission: 07/24/22 08:40 Discharge Date: 07/26/22 Primary care physician: Sejal Tirado MD Consults: 07/24/22 17:43 Consult to Occupational Therapy Evaluate & Treat Comment: Physician Instructions: Evaluate and treat Consult to Physical Therapy Evaluate & Treat Comment: Physician Instructions: Evaluate and Treat Discharge provider: Lyndsey Sims PA-C Summary Hospital Course Discharge Diagnosis: 1. L3-4, L4-5, L5-S1 spinal stenosis with neurogenic claudication 2. L4-5 spondylolisthesis 3. Lumbar scoliosis Hospital Course: Operative Date/Time/Diagnoses Date of procedure: 07/24/22 Time of procedure: 11:20 Procedure & Clinicians Procedure: 1. L3-4, L4-5, L5-S1 Postero-lateral and posterior interbody fusion 2. L3-4, L4-5, L5-S1 interbody cage placement. 3. L3-4, L4-5, L5-S1 decompressive laminectomy with bilateral facetecomies 4. L3-4, L4-5, L5-S1 Posterior segmental instrumentation 5. [place] of bone marrow from iliac crest 6. Utilization of microsurgical technique and operating microscope 7. Utilization of robotic assisted navigation Same procedure as scheduled: Yes Indications: Patient has been having chronic back pain and worsening lumbar radiculopathy and symptoms of neurogenic claudication. Patient failed multiple conservative management with worsening pain weakness and numbness in her lower extremity.? Patient has been having difficulty performing activity of daily living.? After discussing risks benefits of treatment options, patient elected proceed with surgery. Surgeon: Trent Hurst Quality Assurance Manager: Lyndsey Sims Click Yes if Unassisted: No Anesthesia Type: General Operative Notes Closure Type: primary Specimen(s): none sent Prosthetic devices, grafts, tissues, transplants, or devices: Globus CREO MIS screws, RIse cages Applied: catheter Estimated Blood Loss (mL): 100 Blood products transfused: none Status at Discharge Cognitive/behavioral status at discharge: at baseline, oriented Functional status at discharge: uses cane/walker Overall status at discharge: patient is progressing back to baseline Exam Vital Signs (past 8 hours): - 07/26/22 04:51 07/26/22 08:04 Temperature 96.5 F L 99.6 F Pulse Rate 85 91 H Respiratory Rate 17 16 Blood Pressure 117/63 146/88 H Pulse Oximetry 98 96 Oxygen Flow Rate 0 0 Oxygen Delivery Method Room Air Oxygen Flow Rate 0 Narrative Exam Narrative: Please see prior exam from today. Objective Labs Result Diagrams: 07/25/22 05:25 Labs: Laboratory Results - last 24 hr 07/26/22 09:00 SARS-CoV-2 (PCR) Negative [facility] Medical History Anxiety Asthma Fibromyalgia HLD (hyperlipidemia) Pre-diabetes Sciatica Seizure Spinal stenosis Surgical History History of bilateral tubal ligation Hx of dilation and curettage Hx of hernia repair Social History household members: none Smoking Status: Current every day smoker alcohol intake: current Discharge Assessment & Plan Assessment and Plan Assessment: -marginal pain control s/p L3-4, L4-5, L5-S1 TLIF with robot Plan of Treatment: -mobilize with PT/OT. Weightbearing as tolerated with front wheel walker or cane. Limit bending, lifting, twisting x6 weeks. -continue with multimodal pain management -disposition to SNF today once cleared by PT Discharge Plan Discharge Plan Patient Disposition: SNF Discharge orders & Medications Prescriptions: New hydromorphone 2 mg Tablet 2 mg PO Q3H PRN (Reason: Pain, Severe (7-10)) Qty: 42 0RF docusate sodium 100 mg Capsule 100 mg PO BID PRN (Reason: constipation) Qty: 20 0RF hydroxyzine pamoate 25 mg Capsule 25 mg PO Q4HR PRN (Reason: Muscle spasm/pain/nausea) Qty: 40 0RF Continued celecoxib [Celebrex] 200 mg Capsule 200 mg PO DAILY acetaminophen 500 mg Tablet 1,000 mg PO TID diphenhydramine HCl [Benadryl] 25 mg Capsule 50 mg PO BID montelukast 10 mg Tablet 10 mg PO BEDTIME gabapentin 100 mg Capsule 100 mg PO SEEINSTR Label Comments: 3 tabs qam, 2 tabs qnoon, 2 tabs qpm, 3 tabs HS - total 10 tabs daily Rx Instructions: 3 tabs qam, 2 tabs qnoon, 2 tabs qpm, 3 tabs HS - total 10 tabs daily rosuvastatin 20 mg Tablet 10 mg PO DAILY cyanocobalamin (vitamin B-12) [Vitamin B-12] 1,000 mcg Tablet 1,000 mcg PO DAILY magnesium Tablet 1 tab PO DAILY cholecalciferol (vitamin D3) [Vitamin D3] 125 mcg (5,000 unit) Tablet 125 mcg PO DAILY Multi For Her 50 Plus 400-80 mcg Capsule 1 cap PO DAILY Discontinued oxycodone 5 mg Tablet 5 mg PO TID Follow up/Referrals: Sejal Tirado MD [Primary Care Provider] - Trent Hurst MD [Physician] - As previously scheduled (As scheduled in 10-14 days for postoperative visit.) Diet/Activity/Treatments Diet: Diet as Tolerated Other treatments: Medications: -OTC Tylenol 500 mg 1 tablet every 4 hours as needed for pain/fever. Max 6 tablets per day. -dilaudid 2mg take 1 tablet every 3 hours as needed for moderate-severe pain (narcotic pain medication). -As needed medications: -Ducolax and /or MiraLax as needed for constipation from narcotic pain medications. -Pepcid AC as needed for stomach upset. -Vistaril (hydroxyine) 25mg 1 tab every 4 hours as needed for spasms/pain/nausea. Dressing/Wound care: -Keep dressing in place until postoperative follow-up office visit. -Okay to shower. Keep wound out of direct water stream. Can use PressNSeal plastic wrap to protect from shower stream. No soaking or submerging until all the scabs fall off (approximately 6 weeks). -Please call the office if dressing becomes wet, soiled, or saturated. Activities: -Limit bending, lifting, twisting x6 weeks. No deep bending (more than 90 degrees) or twisting at the waist. No lifting > 20 pounds. -Walk frequently. -Weight-bearing as tolerated. Use front wheeled walker, and progress to cane when safe. -Continue with home exercises as directed by your physical therapist. -Ice your incision as needed for pain/inflammation/swelling. Protect your skin with a folded pillowcase. -Incentive Spirometer (breathing device from hospital): 5-10xs every hour while awake for the first 1-2 weeks. Follow-up: -Follow-up with your surgeon or PA in the office in 10-14 days after surgery. -Follow-up with your surgeon 6 weeks postoperatively. Call the office if you have chest pain, shortness of breath, significant swelling that will not resolve with elevating, fever over 101?, significantly worsening pain, or are concerned you might need to go to the Emergency Room. [facility]: [phone] Skin/Wound/Dressing Care Report to your healthcare provider any signs of infection, such as:: chills, fever, night sweats, unusual drainage and unusual redness Special Rehabilitation Services Reason for rehabilitation: Post-operative therapy Rehab type: Physical therapy and Occupational therapy Visit Report/Discharge Packet Instructions: DI for Transforaminal Lumbar Interbody Fusion Stand Alone Forms: Surgery Discharge Discharge Data Primary Care Provider: Sejal Tirado VTE Deep Vein Thrombosis/Pulmonary Embolism Present on Admission: No
[2022-07-26] MEDS: GABAPENTIN 100 MG CAPSULE 200 MG PO (11:08)
--- NOTE | 2022-07-26 11:32 | PC.NURSE ---
Day shift: Report given to Akil at [facility] at this time. All questions answered.
[2022-07-26 11:55] VITALS: BP 149/80; PULSE 89; RESP 16; TEMP 36.3; O2SAT 94
--- NOTE | 2022-07-26 14:07 | PC.NURSE ---
Day shift: Paperwork is with transport person. Pt has all personal belongings. Left unit via WC with transport person at approx 1410. Dressing on back remains CDI. CMS intact and VS WNL.
== END 2022-07-26 14:10 | DRG 455 ==
PROVIDERS: Physician Assistant; Admitting Provider Orthopaedic Surgery Orthopaedic Surgery of the Spine; PCP Internal Medicine; Referring Provider Orthopaedic Surgery Orthopaedic Surgery of the Spine; Visit Provider Orthopaedic Surgery Orthopaedic Surgery of the Spine
PROC: 0SG10AJ Fusion of 2 or more Lumbar Vertebral Joints with Interbody Fusion Device, Posterior Approach, Anterior Column, Open Approach (ICD-10-PCS; principal; 2022-07-24 10:45)
DX: M48.07 Spinal stenosis, lumbosacral region (principal); M43.16 Spondylolisthesis, lumbar region; M41.56 Other secondary scoliosis, lumbar region; M48.062 Spinal stenosis, lumbar region with neurogenic claudication; F17.200 Nicotine dependence, unspecified, uncomplicated; E78.5 Hyperlipidemia, unspecified; M79.7 Fibromyalgia; Z20.822 Contact with and (suspected) exposure to COVID-19
CPT/HCPCS: 36415; 72100; 76000; 85014; 85018; 87635; 97162; 97165; 97530; C9803; C1713; C9290; J0171; J0330; J0690; J1100; J1170; J2060; J2250; J2405; J2704; J3010